=== PATIENT | male | born 1985 | race African-American/Black ===

== ENCOUNTER 2020-06-16 14:45 | Emergency (ER) | payer MEDICAID ==
[~2020-06-16] VITALS: Ht 190.5 cm; Wt 96.0 kg
[2020-06-16] MEDS ORDERED: TRAMADOL 50MG TABLET PO NR (15:15)
[2020-06-16] MEDS ORDERED: TETANUS, DIPHTHERIA, PERTUSSIS VAC/PF 0.5ML (>7YR OLD) IM ONE (16:15)
[2020-06-16] MEDS ORDERED: MORPHINE SULFATE 2 MG/ML CPJ (NOT FOR IM USE) IV ONE (16:15)
[2020-06-16] MEDS ORDERED: CEFAZOLIN 1000MG PREMIX 50 ML IV ONE (16:15)
[2020-06-16] MEDS ORDERED: LIDOCAINE HCL/PF 1% 10 MG/ML 5ML VIAL IJ ONE (16:45)
[2020-06-16 17:02] LABS: CHLORIDE 108 mEq/L (98-107)
[2020-06-16 17:07] LABS: BASOPHILS % 0.8 % (0.0-2.0); EOSINOPHILS % 4.5 % (0.0-5.0); HEMOGLOBIN. 14.1 g/dL (14.0-18.0); MEAN CORPUSCULAR VOLUME 94.6 fL (80.0-94.0); MEAN PLATELET VOLUME 8.4 fl (7.4-10.4); MONOCYTES % 6.9 % (2.0-8.0); NEUTROPHILS % 58.8 % (40.0-76.0); PLATELET 173 x1000/uL (130-400); RED BLOOD CELL COUNT 4.55 mill/uL (4.7-6.1); RED CELL DISTRIBUTION WIDTH 13.7 % (11.6-14.6)
[2020-06-16 18:43] VITALS: BP 146/68
== END 2020-06-16 19:19 | disposition short-term general hospital (02) ==
LOC: ER 14:45
DX: S67.191A Crushing injury of left index finger, initial encounter (principal); S62.631B Displaced fracture of distal phalanx of left index finger, initial encounter for open fracture; I50.9 Heart failure, unspecified; V48.0XXA Car driver injured in noncollision transport accident in nontraffic accident, initial encounter; Y93.89 Activity, other specified; Y92.9 Unspecified place or not applicable
CPT/HCPCS: 12002; 36415; 73140; 80048; 85025; 90471; 90715; 96365; 96375; 99285; J0690; J2270; J3490

== ENCOUNTER 2022-07-11 04:23 | Emergency (ER) | payer MEDICAID ==
[~2022-07-11] VITALS: Ht 190.5 cm; Wt 89.0 kg
[2022-07-11] MEDS ORDERED: VISCOUS LIDOCAINE 2% 15 ML UDC PO ONE (05:15)
[2022-07-11] MEDS ORDERED: MAGNESIUM/ALUMINUM HYDROXIDE/SIMETHICONE 30ML UDC PO ONE (05:15)
[2022-07-11 05:41] LABS: BASOPHILS % 0.7 % (0.0-2.0); EOSINOPHILS % 7.9 % (0.0-5.0); HEMATOCRIT. 39.7 % (42.0-52.0); HEMOGLOBIN. 13.2 g/dL (14.0-18.0); LYMPHOCYTES % 37.5 % (20.0-50.0); MEAN CORPUSCULAR HEMOGLOBIN 30.7 pg (28.0-32.0); MEAN CORPUSCULAR VOLUME 92.5 fL (80.0-94.0); MEAN PLATELET VOLUME 7.9 fl (7.4-10.4); MONOCYTES % 6.6 % (2.0-8.0); NEUTROPHILS % 47.3 % (40.0-76.0); PLATELET 178 x1000/uL (130-400); RED BLOOD CELL COUNT 4.29 mill/uL (4.7-6.1); RED CELL DISTRIBUTION WIDTH 13.9 % (11.6-14.6)
[2022-07-11 05:48] LABS: CHLORIDE 111 mEq/L (98-107)
[2022-07-11 07:44] VITALS: BP 114/67
== END 2022-07-11 08:39 | disposition left against medical advice (07) ==
LOC: ER 04:23 → CANBEDREQ 19:58
DX: I21.4 Non-ST elevation (NSTEMI) myocardial infarction (principal); F12.10 Cannabis abuse, uncomplicated; I25.10 Atherosclerotic heart disease of native coronary artery without angina pectoris; I25.2 Old myocardial infarction; Z98.890 Other specified postprocedural states
CPT/HCPCS: 36415; 71045; 80053; 84484; 85025; 93005; 99291

== ENCOUNTER 2023-12-25 03:59 | Emergency (ER) | payer SELFPAY ==
[~2023-12-25] VITALS: Ht 190.5 cm; Wt 81.6 kg
[2023-12-25 04:01] VITALS: PULSE 78
[2023-12-25 04:03] VITALS: BP 146/81; RESP 16; TEMP 98.6; O2SAT 98
[2023-12-25] MEDS ORDERED: AMOX1TAB16 PO (06:24)
[2023-12-25] MEDS ORDERED: TOPUD PO (06:24)
[2023-12-25] MEDS ORDERED: TETANUS, DIPHTHERIA, PERTUSSIS VAC/PF 0.5ML (>10YR OLD) IM ONE (06:30)
== END 2023-12-25 08:40 | disposition home or self-care (01) ==
LOC: ER 03:59
DX: S61.051A Open bite of right thumb without damage to nail, initial encounter (principal); I25.10 Atherosclerotic heart disease of native coronary artery without angina pectoris; I25.2 Old myocardial infarction; W54.0XXA Bitten by dog, initial encounter; Y93.89 Activity, other specified; Y92.89 Other specified places as the place of occurrence of the external cause; Y99.8 Other external cause status
CPT/HCPCS: 99281; Z7610 ×2

== ENCOUNTER 2024-12-19 07:49 | Emergency (ER) | payer MEDICAID ==
[~2024-12-19] VITALS: Ht 190.5 cm; Wt 82.0 kg
[~2024-12-19 07:49] MED LIST: AMOX1TAB16 PO; TOPUD PO
[2024-12-19 07:56] VITALS: BP 118/73; TEMP 98.6; O2SAT 99
[2024-12-19 08:50] VITALS: PULSE 69; RESP 18; O2SAT 100
[2024-12-19 08:54] LABS: HEMATOCRIT. 45.5 % (42.0-52.0); HEMOGLOBIN. 14.9 g/dL (14.0-18.0); MEAN CORPUSCULAR HEMOGLOBIN 30.8 pg (28.0-32.0); MEAN CORPUSCULAR HGB CONC 32.8 g/dL (31.0-37.0); MEAN CORPUSCULAR VOLUME 93.9 fL (80.0-94.0); MEAN PLATELET VOLUME 8.3 fl (7.4-10.4); PLATELET 182 x1000/uL (130-400); RED BLOOD CELL COUNT 4.85 mill/uL (4.7-6.1); RED CELL DISTRIBUTION WIDTH 14.2 % (11.6-14.6); WHITE BLOOD COUNT 3.7 x1000/uL (4.5-11.0)
[2024-12-19 08:57] LABS: DIFFERENTIAL COMMENT 1
[2024-12-19 09:00] LABS: CHLORIDE 109 mEq/L (98-107); POTASSIUM 4.1 mEq/L (3.5-5.1); SODIUM 139 mEq/L (136-145)
[2024-12-19 09:01] LABS: CALCIUM 9.1 mg/dL (8.7-10.4); CARBON DIOXIDE 22 mEq/L (21-32)
[2024-12-19 09:06] LABS: CREATININE 1.1 mg/dL (0.6-1.3); GLUCOSE 99 mg/dL (70-105); UREA NITROGEN BLOOD 9 mg/dL (9-23)
[2024-12-19 09:21] LABS: TROPONIN I HIGH SENSITIVITY < 4 ng/L (3.0-53)
[2024-12-19 10:06] LABS: PLATELET ESTIMATE NORMAL
== END 2024-12-19 12:12 | disposition left against medical advice (07) ==
LOC: ER 08:01
DX: R07.89 Other chest pain (principal); I25.2 Old myocardial infarction; F12.90 Cannabis use, unspecified, uncomplicated
CPT/HCPCS: 80048; 83880; 85025; 84484; 36415; 71045; 93005; 99285; Z7610